=== PATIENT | female | born 1975 | race Caucasian/White ===

== ENCOUNTER 2018-07-21 05:00 | Inpatient (IN) | payer OTHER ==
[2018-07-21 05:59] LABS: ADD MAN DIFF? NO
[2018-07-21] MEDS ORDERED: BUTORPHANOL 2 MG INJ IV (06:00)
[2018-07-21] MEDS ORDERED: OXYTOCIN 30 UNITS/LR 500 ML IV ×3 (06:00→10:00)
[2018-07-21] MEDS ORDERED: METHYLERGONOVINE 0.2 MG INJ IM (06:00)
[2018-07-21] MEDS ORDERED: LIDOCAINE 1% (MPF) 30 ML INJ INJ (06:00)
[2018-07-21] MEDS ORDERED: CARBOPROST 250 MCG INJ IM ×2 (06:00→10:00)
[2018-07-21] MEDS ORDERED: MISOPROSTOL 200 MCG TAB PR ×2 (06:00→10:00)
[2018-07-21 06:06] LABS: WHITE BLOOD COUNT 11.2 10^3/ul (4.8-10.8)
[2018-07-21 06:06] LABS: BASOPHILS % 0.3 % (0.0-2.0); EOSINOPHILS % 0.1 % (0.0-7.0); HEMATOCRIT 37.8 % (37.0-47.0); HEMOGLOBIN 12.5 g/dl (12.0-16.0); LYMPHOCYTES # 1.1 10^3/ul (0.8-2.9); LYMPHOCYTES % 10.2 % (15.0-51.0); MEAN CORPUSCULAR HEMOGLOBIN 30.3 pg (29.0-33.0); MEAN CORPUSCULAR HGB CONC 33.1 g/dl (32.0-37.0); MEAN CORPUSCULAR VOLUME 91.7 fl (82.0-101.0); MEAN PLATELET VOLUME 11.1 fl (7.4-10.4); MONOCYTE # 0.6 10^3/ul (0.3-0.9); MONOCYTES % 5.2 % (0.0-11.0); NEUTROPHIL # 9.3 10^3/ul (1.6-7.5); NEUTROPHILS % 83.3 % (39.0-77.0); PLATELET COUNT 121 10^3/UL (140-415); RED BLOOD COUNT 4.12 10^6/ul (4.20-5.40); RED CELL DISTRIBUTION WIDTH 13.2 % (11.5-14.5)
[2018-07-21] MEDS: LACTATED RINGER'S 1,000 ML IV ×3 (06:32→08:57)
[2018-07-21] MEDS ORDERED: FENTAnyl 2MCG/ML-ROPIV 0.2% 100 ML (07:27)
[2018-07-21 08:04] LABS: HEPATITIS B SURFACE ANTIGEN NEGATIVE (NEGATIVE)
[2018-07-21] MEDS: OXYTOCIN 30 UNITS/LR 500 ML IV (08:57)
[2018-07-21] MEDS ORDERED: NALOXONE (0.4 MG/ML) INJ IV (09:30)
[2018-07-21] MEDS ORDERED: FENTAnyl 2MCG/ML-ROPIV 0.2% 100 ML BAG EPI (09:30)
[2018-07-21] MEDS ORDERED: HYDROCODONE/APAP (5/325) TAB PO ×2 (10:00)
[2018-07-21] MEDS ORDERED: SENNA/DOCUSATE NA (8.6MG/50MG) TAB PO (10:00)
[2018-07-21] MEDS ORDERED: ONDANSETRON 4 MG TAB PO (10:00)
[2018-07-21] MEDS ORDERED: DIPHENHYDRAMINE 50 MG INJ IV (10:00)
[2018-07-21] MEDS ORDERED: NA PHOSPHATE/BIPHOS 133 ML ENEMA PR (10:00)
[2018-07-21] MEDS ORDERED: DIBUCAINE 1% 30 GM OINT TOP (10:00)
[2018-07-21] MEDS ORDERED: MAGNESIUM HYDROXIDE 30ML CUP PO (10:00)
[2018-07-21] MEDS ORDERED: DIPHENHYDRAMINE 25 MG CAP PO (10:00)
[2018-07-21] MEDS ORDERED: BENZOCAINE 20% 56 ML SPRAY TOP (10:00)
[2018-07-21] MEDS ORDERED: ONDANSETRON 4 MG INJ IV (10:00)
[2018-07-21] MEDS: WITCH HAZEL/GLYCERIN PAD PR (11:57)
[2018-07-21] MEDS: LANOLIN HPA 1 PKT TOP (11:57)
[2018-07-21] MEDS: IBUPROFEN 600 MG TAB PO ×3 (12:11→23:29)
[2018-07-21 14:24] LABS: INR 0.94; PROTIME 12.7 Sec (11.9-14.9)
[2018-07-21 14:25] LABS: PARTIAL THROMBOPLASTIN TIME 27.3 Sec (23.0-35.0)
[2018-07-21 16:47] LABS: RAPID PLASMA REAGIN NONREACTIVE (NR)
[2018-07-21] MEDS: LACTATED RINGER'S 1,000 ML IV* ×2 (19:40)
[2018-07-21] MEDS: SENNA/DOCUSATE NA (8.6MG/50MG) TAB PO (21:33)
[2018-07-22] MEDS: LACTATED RINGER'S 1,000 ML IV* (01:40)
[2018-07-22] MEDS: LACTATED RINGER'S 1,000 ML IV (05:06)
[2018-07-22] MEDS: IBUPROFEN 600 MG TAB PO ×4 (06:00→23:56)
[2018-07-22 08:20] LABS: ADD MAN DIFF? NO
[2018-07-22 08:30] LABS: WHITE BLOOD COUNT 8.4 10^3/ul (4.8-10.8)
[2018-07-22 08:30] LABS: ABNORMAL IP MESSAGE 1; BASOPHILS % 0.4 % (0.0-2.0); EOSINOPHILS # 0.1 10^3/ul (0.0-0.5); HEMATOCRIT 33.8 % (37.0-47.0); HEMOGLOBIN 11.2 g/dl (12.0-16.0); LYMPHOCYTES # 1.3 10^3/ul (0.8-2.9); MEAN CORPUSCULAR HEMOGLOBIN 30.9 pg (29.0-33.0); MEAN CORPUSCULAR HGB CONC 33.1 g/dl (32.0-37.0); MEAN CORPUSCULAR VOLUME 93.1 fl (82.0-101.0); MEAN PLATELET VOLUME 11.4 fl (7.4-10.4); MONOCYTE # 0.5 10^3/ul (0.3-0.9); MONOCYTES % 6.1 % (0.0-11.0); NEUTROPHIL # 6.4 10^3/ul (1.6-7.5); NEUTROPHILS % 76.7 % (39.0-77.0); PLATELET COUNT 98 10^3/UL (140-415); RED BLOOD COUNT 3.63 10^6/ul (4.20-5.40); RED CELL DISTRIBUTION WIDTH 13.4 % (11.5-14.5)
[2018-07-22 08:41] LABS: POSITIVE DIFF @See below
[2018-07-22] MEDS: SENNA/DOCUSATE NA (8.6MG/50MG) TAB PO ×2 (09:35→21:06)
[2018-07-22] MEDS: VARICELLA VACCINE LIVE/PF 1,350 UNIT/0.5 ML ML SC* (12:19)
[2018-07-22] MEDS: MEASLES,MUMPS,RUBELLA VACCINE INJ SC* (12:19)
[2018-07-22] MEDS: DIPHTH/TET/ACEL PERTUSS (ADULT) 0.5 ML VIAL IM* (12:20)
[2018-07-23] MEDS: IBUPROFEN 600 MG TAB PO ×2 (05:28→11:23)
[2018-07-23] MEDS: SENNA/DOCUSATE NA (8.6MG/50MG) TAB PO (08:46)
== END 2018-07-23 13:24 | disposition home or self-care (01) | DRG 807 ==
LOC: OBT 05:00 → L-D 05:00 → OBT 05:21 → L-D 05:21 → PP1 10:49
PROVIDERS: Obstetrics & Gynecology
PROC: 10E0XZZ Delivery of Products of Conception, External Approach (ICD-10-PCS; principal; 2018-07-21)
PROC: 4A1HXCZ Monitoring of Products of Conception, Cardiac Rate, External Approach (ICD-10-PCS; 2018-07-21)
PROC: 10907ZC Drainage of Amniotic Fluid, Therapeutic from Products of Conception, Via Natural or Artificial Opening (ICD-10-PCS; 2018-07-21)
DX: O69.1XX0 Labor and delivery complicated by cord around neck, with compression, not applicable or unspecified (principal); Z37.0 Single live birth; Z3A.39 39 weeks gestation of pregnancy; Z88.0 Allergy status to penicillin
CPT/HCPCS: 62319; 85025; 85610; 85730; 86592; 86850; 86900; 86901; 87340; 90716; 99464